=== PATIENT | male | born 1960 | race Native Hawaiian/Other Pacific Islander ===

== ENCOUNTER 2017-11-14 17:03 | Emergency (ER) | payer OTHER ==
[~2017-11-14] VITALS: Ht 157.5 cm; Wt 110.7 kg
[~2017-11-14 17:03] MED LIST: ACID REDUCER150 M1 PO; ALLO100T22 PO; ATIVAN2 MG PO; BENZ1TAB43 PO; BUSPIRONE10 MG PO; CARAFATE1 GM PO; CELEXA40 MG PO; CLARITIN10 M1 PO; CYAN10009 IM; DIVALPROEX500 MG PO; DONE5TAB PO; HALO5INJ3 IM; HALO5TAB10 PO; HCTZ 25MG TAB PO; LISITAB PO; NAMENDA10 MG PO; PRAVACHOL20 MG PO; RISP1TAB PO; SCOPOLAMIN1 MG/3 DAY TD; TAMS0.4C PO
[2017-11-14 18:07] LABS: PLATELET COUNT 261 K/uL (142-355)
[2017-11-14 18:12] LABS: POTASSIUM 3.2 mmol/L (3.6-5.2)
[2017-11-14 18:55] VITALS: BP 144/72; TEMP 98.9
[2017-11-14] MEDS ORDERED: LISI10TA11 PO (22:31)
[2017-11-14] MEDS ORDERED: BENADRYL A12.5 MG/5 PO (22:54)
[2017-11-14] MEDS ORDERED: ROBITUSSIN7.5 MG/5 M PO (22:58)
[2017-11-14] MEDS ORDERED: PHENERGAN 25MG/25 MG IM (23:12)
== END 2017-11-14 18:56 | disposition other institution (70) ==
LOC: ED 17:03
DX: R46.89 Other symptoms and signs involving appearance and behavior (principal); Z04.6 Encounter for general psychiatric examination, requested by authority; I10 Essential (primary) hypertension
CPT/HCPCS: 36415; 80053; 80307; 80320; 80329; 81000; 84443; 85027; 93005; 99285